=== PATIENT | female | born 1965 | race Hispanic/Latino ===

== ENCOUNTER 2020-02-22 15:40 | Emergency (ER) | payer BC ==
[2020-02-22] MEDS ORDERED: Amoxicillin/Potassium Clav 875 MG TAB ONE (16:00)
[2020-02-22] MEDS ORDERED: Adacel (T-DAP) 0.5 ML SYRINGE ONE (16:00)
[2020-02-22] MEDS ORDERED: Bacitracin 1 PK ONE (16:14)
== END 2020-02-22 16:29 | disposition home or self-care (01) ==
LOC: BURERS 15:40
DX: S51.851A Open bite of right forearm, initial encounter (principal); S51.852A Open bite of left forearm, initial encounter; W54.0XXA Bitten by dog, initial encounter
CPT/HCPCS: 90471; 90715